=== PATIENT | female | born 1985 | race Caucasian/White ===

== ENCOUNTER → 2017-01-21 | Outpatient (CLI) | payer OTHER, MEDICAID | END | disposition home or self-care (01) | LOC: PTH.S 12:54 | DX: J98.4 Other disorders of lung (principal); R06.89 Other abnormalities of breathing ==

== ENCOUNTER → 2017-02-24 | Outpatient (CLI) | payer OTHER, MEDICAID | END | disposition home or self-care (01) | LOC: PTH.S 16:45 | DX: R05 Cough (principal) ==